=== PATIENT | female | born 1935 | race Caucasian/White ===

== ENCOUNTER 2016-10-19 18:00 | Inpatient (IN) ==
[2016-10-19] MEDS ORDERED: NS 1,000 ML IV ONE (18:44)
[2016-10-19] MEDS ORDERED: HUMULIN R IV ONE (19:25)
[2016-10-19 19:26] LABS: BLOOD TYPE ARTERIAL; SAMPLE BLOOD; pH(98.6) 7.14 (7.35-7.45)
[2016-10-19] MEDS ORDERED: ZOFRAN IV ONE (19:26)
[2016-10-19 19:27] LABS: PCO2(98.6) 15 mmHg (35-45); PO2(98.6) 76 mmHg (60-100)
[2016-10-19 19:28] LABS: MODALITY ROOM AIR
[2016-10-19 19:29] LABS: ALLEN TEST YES; DRAW SITE R RADIAL
[2016-10-19 20:00] LABS: ALBUMIN 3.8 g/dL (3.5-5.0); CALCIUM 9.7 mg/dL (8.8-10.2); POTASSIUM 5.9 mmol/L (3.5-5.1); TOTAL BILIRUBIN 0.51 mg/dL (0.20-1.00); TOTAL PROTEIN 6.7 g/dL (6.3-8.3)
[2016-10-19 20:10] LABS: BASO% 0.2 % (0.0-0.8); HEMATOCRIT 33.1 % (37.0-47.0); HEMOGLOBIN 10.3 g/dL (12.0-16.0); IMM GRAN# 0.12 X1000 (0.0-0.04); IMM GRAN% 0.6 % (0.0-0.5); LYMPH% 3.6 % (20.5-51.1); MANUAL DIFF NEEDED? NO; MCH 29.7 PG (27-31); MCHC 31.1 g/dL (33-37); MCV 95.4 FL (81-99); MONO# 1.24 X1000 (0.11-0.59); MONO% 6.4 % (1.7-9.3); MPV 11.7 FL (7.4-10.4); NEUT% 89.2 % (42.2-75.2); PLT 344 X1000 (130-400); RBC 3.47 XMIL (4.2-5.4)
[2016-10-19 20:20] LABS: URINE CULTURE NEEDED? NO; URINE MICRO REVIEW NEEDED? NO; URINE SOURCE CATH
[2016-10-19] MEDS: HUMULIN R 100 UNIT in NS 100 ML IV ONE ×2 (20:22→22:32)
[2016-10-19 20:37] LABS: BILIRUBIN URINE NEGATIVE (NEGATIVE); BLOOD URINE NEGATIVE (NEGATIVE); COLOR YELLOW; GLUCOSE URINE >1000 mg/dL (NEGATIVE); LEUKOCYTES URINE NEGATIVE (NEGATIVE); NITRITE URINE NEGATIVE (NEGATIVE); PROTEIN URINE NEGATIVE (NEGATIVE); SP GRAVITY URINE 1.022; TURBIDITY URINE CLEAR (CLEAR); UROBILINOGEN URINE NORMAL (NORMAL)
[2016-10-19 20:38] LABS: UR EPITHELIAL CELLS <10 /HPF (<10); URINE BACTERIA NEGATIVE /HPF; URINE RBC <10 /HPF (<10); URINE WBC <10 /HPF (<10)
[2016-10-19 20:46] LABS: UR AMPHETAMINES QUAL NONE DETECTED (NONE DETECT); UR BARBITUATES QUAL NONE DETECTED (NONE DETECT); UR BENZODIAZEPIN QUAL NONE DETECTED (NONE DETECT); UR CANNABINOIDS QUAL NONE DETECTED (NONE DETECT); UR COCAINE QUAL NONE DETECTED (NONE DETECT); UR METHADONE QUAL NONE DETECTED (NONE DETECT); UR OPIATES QUAL NONE DETECTED (NONE DETECT); UR OXYCODONE QUAL NONE DETECTED (NONE DETECT); UR PCP QUAL NONE DETECTED (NONE DETECT)
[2016-10-19] MEDS ORDERED: ATIVAN IV ONE (21:39)
[2016-10-19] MEDS ORDERED: D50W SYRINGE IV PRN (23:18)
[2016-10-19] MEDS ORDERED: POTASSIUM CHLORIDE 40 MEQ in NS 250 ML IV PRN (23:18)
[2016-10-19] MEDS ORDERED: HUMULIN R 100 UNIT in NS 99 ML IV SCH (23:18)
[2016-10-19] MEDS ORDERED: ZOFRAN PO PRN (23:18)
[2016-10-19] MEDS ORDERED: SODIUM BICARBONATE 8.4% 50 MEQ in D5W 250 ML IV PRN (23:18)
[2016-10-19] MEDS ORDERED: SODIUM PHOSPHATE 30 MMOL in D5W 250 ML IV PRN (23:18)
[2016-10-19] MEDS ORDERED: ZOFRAN IV PRN (23:18)
[2016-10-19] MEDS ORDERED: MAGNESIUM SULFATE 2 GM/S.W.I. 2 GM/50 ML IVPB IV PRN (23:18)
[2016-10-19] MEDS ORDERED: POTASSIUM CHLORIDE 20 MEQ in NS 100 ML IV PRN (23:18)
[2016-10-19] MEDS ORDERED: KLOR-CON PO PRN ×2 (23:18)
[2016-10-19] MEDS: NS 1,000 ML IV SCH (23:27)
[2016-10-19 23:51] LABS: CALCIUM 9.2 mg/dL (8.8-10.2); MAGNESIUM 2.2 mg/dL (1.5-2.7); POTASSIUM 4.6 mmol/L (3.5-5.1)
[2016-10-20 00:08] LABS: ALLEN TEST YES; BE -11.4 mmoll (-3.0-3.0); BLOOD TYPE ARTERIAL; DRAW SITE R RADIAL; METHB 1.4 % (0.0-1.5); O2(CT) 12.6 mL/dL (15.0-23.0); PCO2(98.6) 26 mmHg (35-45); PO2(98.6) 106 mmHg (60-100); SAMPLE BLOOD; SAO2 99.1 % (95.0-100.0); THB 9.1 g/dL (11.5-17.4); pH(98.6) 7.32 (7.35-7.45)
[2016-10-20 00:09] LABS: MODALITY ROOM AIR
[2016-10-20] MEDS: ROCEPHIN 1 GM/NS 1 GM/50 ML IVPB IV SCH (00:25)
[2016-10-20] MEDS: NS 1,000 ML IV SCH ×3 (00:42→03:10)
[2016-10-20] MEDS ORDERED: ATIVAN IV PRN (02:46)
[2016-10-20] MEDS ORDERED: NS 1,000 ML IV SCH (03:00)
[2016-10-20 04:26] LABS: CALCIUM 8.7 mg/dL (8.8-10.2); MAGNESIUM 1.9 mg/dL (1.5-2.7)
--- NOTE | 2016-10-20 04:37 | HISTORY AND PHYSICAL ---
ADDENDUM Critical care time was noted for about 45 minutes. cc: Maverick Ren MD
[2016-10-20 04:39] LABS: ALLEN TEST YES; BE -9.5 mmoll (-3.0-3.0); BLOOD TYPE ARTERIAL; DRAW SITE R RADIAL; METHB 1.7 % (0.0-1.5); O2(CT) 12.7 mL/dL (15.0-23.0); PCO2(98.6) 28 mmHg (35-45); PO2(98.6) 83 mmHg (60-100); SAMPLE BLOOD; SAO2 99.3 % (95.0-100.0); THB 9.3 g/dL (11.5-17.4); pH(98.6) 7.34 (7.35-7.45)
[2016-10-20 04:40] LABS: MODALITY ROOM AIR
[2016-10-20] MEDS ORDERED: HUMULIN R 100 UNIT in NS 100 ML IV SCH ×2 (04:45→16:00)
--- NOTE | 2016-10-20 05:01 | HISTORY AND PHYSICAL ---
PRIMARY CARE PHYSICIAN: Darrin Antonio MD CHIEF COMPLAINT: Mental status changes and hyperglycemia. HISTORY OF PRESENTING ILLNESS: A 80-year-old female with a history of diabetes mellitus, type 2 hypertension, coronary artery disease, was brought to the emergency department because the patient was mildly confused and not acting right as per family members. She was evaluated in the emergency room. She was noted to have markedly elevated blood glucose in the 800 range. Her symptoms are all consistent with a diabetic ketoacidosis and due to her presenting symptoms it was thought that she would need hospitalization for further management. The patient is severely altered and not much history could be obtained from her. Most of the history is obtained from her family members. PAST MEDICAL HISTORY: Include diabetes mellitus type 2, Zhao's palsy, hypertension, coronary artery disease/myocardial infarction. PAST SURGICAL HISTORY: Coronary bypass. ALLERGIES: No known drug allergies. CURRENT MEDICATIONS: As listed in the MAR. SOCIAL HISTORY: No history of smoking, alcohol, or illicit drug use. The patient was fairly independent prior to her hospitalization today. FAMILY HISTORY: No history of coronary disease. REVIEW OF SYSTEMS: Unable to obtain because patient is markedly obtunded. PHYSICAL EXAMINATION: GENERAL: The patient is resting comfortably. VITAL SIGNS: Temperature 97.2 degrees, pulse 100, respiration 20, blood pressure 111/33. HEENT: Atraumatic, normocephalic. NECK: No masses. CHEST: Rhonchi. CARDIOVASCULAR: Regular rate and rhythm. ABDOMEN: Soft. Positive bowel sounds. EXTREMITIES: No edema. NEUROLOGICAL: She is obtunded; however, moans to some verbal stimuli. GENITOURINARY: No bladder distention. SKIN: Warm. LABORATORIES AND STUDIES: Sodium 138, potassium 5.9, chloride 91. CO2 6, BUN is 36, creatinine 1.7. Glucose is 860. Blood gases shows a pH of 7.14. WBC is 19.32, hemoglobin 10.3, hematocrit 33.1, platelets 344,000. Urine shows greater than 1000 of glucose. ASSESSMENT: A 80-year-old female with a history of diabetes mellitus type 2, hypertension, coronary artery disease, who presented to the emergency department with 1-day history of mental status changes. She was found to have markedly elevated blood glucose consistent with diabetic ketoacidosis. She will be admitted to ICU for further evaluation management. 1. Altered mental status, probably secondary #2. 2. Diabetic ketoacidosis. 3. Leukocytosis. 4. Hypertension. 5. Coronary artery disease. PLAN: 1. We will admit patient to ICU. 2. We will continue with neuro checks. 3. We will put patient on diabetic ketoacidosis insulin protocols. 4. Check blood cultures and start patient on IV antibiotics. 5. We will monitor blood pressure and resume antihypertensive agents. 6. We will resume her home medications once she is more alert. 7. We will put patient on deep venous thrombosis prophylaxis with SCDs and heparin. 8. We will continue to follow and reassess. cc: Maverick Ren MD
[2016-10-20 05:02] LABS: HEMATOCRIT 25.8 % (37.0-47.0); HEMOGLOBIN 8.3 g/dL (12.0-16.0); IMM GRAN# 0.03 X1000 (0.0-0.04); IMM GRAN% 0.3 % (0.0-0.5); LYMPH# 0.55 X1000 (1.2-3.4); LYMPH% 4.6 % (20.5-51.1); MANUAL DIFF NEEDED? YES; MCH 28.8 PG (27-31); MCHC 32.2 g/dL (33-37); MCV 89.6 FL (81-99); MONO# 1.02 X1000 (0.11-0.59); MONO% 8.6 % (1.7-9.3); MPV 10.7 FL (7.4-10.4); NEUT% 86.5 % (42.2-75.2); PLT 238 X1000 (130-400); RBC 2.88 XMIL (4.2-5.4)
[2016-10-20] MEDS ORDERED: POTASSIUM CHLORIDE 40 MEQ in NS 250 ML IV PRN (05:25)
[2016-10-20] MEDS ORDERED: POTASSIUM CHLORIDE 20 MEQ in NS 100 ML IV PRN (05:25)
[2016-10-20 05:53] LABS: BANDS 6 % (0-1); LYMPHS 4 % (21-51); MONO 8 % (1-9)
[2016-10-20] MEDS: D5 NS 1,000 ML IV PRN ×3 (05:59→22:58)
--- NOTE | 2016-10-20 07:58 | Diag Imaging Result Document ---
PROCEDURE NAME: CHEST-PORTABLE - 10/19/2016 AP PORTABLE CHEST AT 1902 HOURS: FINDINGS: The inspiration is better than on 04/09/2015. There is still some reticulonodular interstitial opacity throughout both lungs. IMPRESSION: No evidence of acute pulmonary disease. Chronic interstitial fibrotic changes.
[2016-10-20 08:13] LABS: ALLEN TEST YES; BLOOD TYPE ARTERIAL; DRAW SITE R RADIAL; METHB 1.4 % (0.0-1.5); O2(CT) 12.6 mL/dL (15.0-23.0); PCO2(98.6) 29 mmHg (35-45); PO2(98.6) 109 mmHg (60-100); SAMPLE BLOOD; SAO2 99.7 % (95.0-100.0); THB 9.1 g/dL (11.5-17.4); pH(98.6) 7.38 (7.35-7.45)
[2016-10-20 08:14] LABS: MODALITY ROOM AIR
[2016-10-20 09:27] LABS: CALCIUM 8.4 mg/dL (8.8-10.2); MAGNESIUM 1.9 mg/dL (1.5-2.7); POTASSIUM 4.6 mmol/L (3.5-5.1)
[2016-10-20] MEDS: HUMULIN R SUBQ SCH ×4 (09:41→21:16)
[2016-10-20] MEDS ORDERED: POTASSIUM PHOSPHATE 30 MMOL in NS 250 ML IV ONE (10:30)
[2016-10-20 11:57] LABS: CALCIUM 8.3 mg/dL (8.8-10.2); MAGNESIUM 1.9 mg/dL (1.5-2.7); POTASSIUM 4.6 mmol/L (3.5-5.1)
[2016-10-20 15:43] LABS: CALCIUM 8.3 mg/dL (8.8-10.2); MAGNESIUM 1.8 mg/dL (1.5-2.7); POTASSIUM 5.1 mmol/L (3.5-5.1)
[2016-10-20] MEDS ORDERED: NORCO-5 PO PRN ×2 (17:37→18:26)
[2016-10-20] MEDS ORDERED: ULTRAM PO SCH (18:00)
--- NOTE | 2016-10-20 18:26 | PROGRESS NOTE ---
DATE: 10/20/2016 ICU FOLLOWUP: SUBJECTIVE: Interval history was reviewed. A 80-year-old white female, who was admitted last night with altered mental status, DKA, dehydration, anemia. Patient is very noncompliant. The patient was seen in my office 2 weeks ago for elevated blood pressure and also abnormal thyroid function tests. She is not taking Synthroid. She was severely hypothyroid. She also had a right Zhao's palsy which is recovering. She is noncompliant about diabetes. She is on insulin pump. REVIEW OF SYSTEMS: Patient is obtunded, agitated, sedated with Ativan. PAST MEDICAL HISTORY: Reviewed. PAST SURGICAL HISTORY: Reviewed. MEDICINES: Were reviewed. Updated the medication list. PHYSICAL EXAMINATION: Vital Signs: Afebrile. Respiration 14. Blood pressure was stable on 2 L of nasal cannula 96%. HEENT Exam: Right-sided facial paresis noted. Neck: Supple. Chest: Clear to auscultation. Heart: Sounds are regular. Abdomen: Belly is soft, dry. No signs of peritonitis. Extremities: No peripheral edema, cyanosis, clubbing. Neuro exam: Hard to assess because obtunded. Able to move all the extremities as per the nurses. LABORATORIES: CBC: White cell count 11, hematocrit 25.8, platelets 238,000. ABG; pH is 7.38, pCO2 of 29, PO2 109, bicarb 19. SMA 7; sodium 148, potassium 5.1, chloride 120, CO2 14, anion gap is coming down. BUN 27, creatinine 1.1, glucose 199, calcium 8.3, phosphorus 2.9. Magnesium 1.8. TSH 0.24. Urinalysis is negative. Urine toxicology screen was negative. IMAGING: Chest x-ray: No evidence of acute disease. Chronic interstitial fibrotic changes. ASSESSMENT AND PLAN: 1. Altered mental status due to diabetic ketoacidosis. Patient has been on insulin drip. Blood sugars are running around 200. Discontinue insulin drip. Follow up on sliding scale with insulin coverage. 2. Dehydration. Continue on IV fluids. 3. Hypothyroidism. On Synthroid 150 mcg once a day. 4. Hypertension. On Cozaar 50 once daily, metoprolol 25 daily. 5. Restless legs syndrome. On Mirapex. 6. Chronic pain. On [place] and Ultram as needed. 7. Coronary artery disease. Continue on Plavix and beta blockers. 8. Hypophosphatemia. We will do a potassium phosphate. We will discuss with the family. We will continue to monitor in the ICU. Condition is guarded. 9. Right Zhao's palsy. Stable. LEVEL OF DOCUMENTATION: 35 minutes. cc: Saqib Antonio MD
[2016-10-20] MEDS: ULTRAM PO SCH (18:33)
[2016-10-20 20:14] LABS: CALCIUM 8.3 mg/dL (8.8-10.2); MAGNESIUM 1.8 mg/dL (1.5-2.7); POTASSIUM 4.8 mmol/L (3.5-5.1)
[2016-10-20] MEDS ORDERED: SYNTHROID PO SCH (21:00)
[2016-10-20] MEDS ORDERED: COZAAR PO SCH (21:00)
[2016-10-20] MEDS ORDERED: DESYREL PO SCH (21:00)
[2016-10-20] MEDS: DESYREL PO SCH (21:10)
[2016-10-20] MEDS: COZAAR PO SCH (21:10)
[2016-10-20] MEDS: SYNTHROID PO SCH (21:10)
[2016-10-20 23:44] LABS: CALCIUM 8.1 mg/dL (8.8-10.2); MAGNESIUM 1.8 mg/dL (1.5-2.7); POTASSIUM 4.2 mmol/L (3.5-5.1)
[2016-10-21] MEDS: ROCEPHIN 1 GM/NS 1 GM/50 ML IVPB IV SCH (01:45)
[2016-10-21] MEDS: ULTRAM PO SCH ×3 (02:41→19:01)
[2016-10-21 05:53] LABS: CALCIUM 7.9 mg/dL (8.8-10.2); MAGNESIUM 1.8 mg/dL (1.5-2.7)
[2016-10-21] MEDS: HUMULIN R SUBQ SCH ×4 (06:39→21:39)
[2016-10-21] MEDS: D5 NS 1,000 ML IV PRN (07:37)
[2016-10-21] MEDS: MIRAPEX PO SCH (08:34)
[2016-10-21] MEDS: PLAVIX PO SCH (08:35)
[2016-10-21] MEDS: TOPROL XL PO SCH (08:35)
[2016-10-21] MEDS: PRAVACHOL PO SCH (08:35)
[2016-10-21] MEDS ORDERED: MIRAPEX PO SCH (09:00)
[2016-10-21] MEDS ORDERED: PRAVACHOL PO SCH (09:00)
[2016-10-21] MEDS ORDERED: TOPROL XL PO SCH (09:00)
[2016-10-21] MEDS ORDERED: PLAVIX PO SCH (09:00)
[2016-10-21] MEDS ORDERED: NEUTRA-PHOS PO ONE (11:17)
[2016-10-21] MEDS: 1/2 NS 1,000 ML IV SCH (12:38)
--- NOTE | 2016-10-21 12:53 | PROGRESS NOTE ---
DATE: 10/21/2016 SUBJECTIVE: The patient is more alert following the verbal commands. Mental status is improving as well as DKA with anion gap. REVIEW OF SYSTEMS: HEENT: Denies any headache, vision problems. No sore throat. Neck: No goiters, no lymphadenopathy. Cardiopulmonary: No chest pain, shortness of breath, PND, orthopnea. GI: No nausea, vomiting, abdominal pain. : Had a Rueda placed. Extremities: No swelling of feet. Neurological: Right-sided facial weakness due to Zhao palsy, no improvement. MEDICATIONS: Reviewed. Basically off on insulin pump. PHYSICAL EXAMINATION: Vital signs: Hemodynamics are stable. Afebrile. HEENT: Right-sided facial palsy involving the upper part of the face and the lower part of the face. Lagophthalmos noted. Tongue is in midline. Neck: Supple, no lymphadenopathy, no goiter. Chest: Bilateral air entry. Heart: Heart sounds are regular. Abdomen: Belly is soft, nontender, good bowel sounds. Rueda is placed. Extremities: No signs of gangrene. Decreased pulses as well as sensory exam. INVESTIGATIONS: SMAS: Sodium 149, potassium 5.0, chloride 131, BUN 22, creatinine 1.0, glucose 300. Magnesium 1.8, phosphorus 2.6, calcium 7.9. ASSESSMENT AND PLAN: 1. Diabetic ketoacidosis is improving, resolving anion gap, changing the IV fluids to half normal saline 80 mL/h. 2. Electrolytes: Potassium is normal. Phosphorus is low. Replace with Neutra-Phos. 3. Diabetes. Instructed family about insulin pump, continue on basal insulin, and follow up on sliding scale. 4. Anemia. Check the stool and CBC in the morning. 5. Coronary artery disease. Continue on Plavix. 6. Hypothyroidism, on Synthroid 150 mcg once a day. 7. Hypertension on Cozaar. 8. Hyperlipidemia on pravastatin. 9. Zhao palsy on the right side, no improvement. PLAN OF CARE TODAY: 1. Discontinue Rueda. 2. Will start on insulin pump. 3. Replace with Neutra-Phos for hypophosphatemia. Discussed with patient's daughter at bedside. LEVEL OF DOCUMENTATION: 35 minutes. cc: Saqib Antonio MD
[2016-10-21 14:37] LABS: CALCIUM 8.1 mg/dL (8.8-10.2); MAGNESIUM 1.9 mg/dL (1.5-2.7); POTASSIUM 4.6 mmol/L (3.5-5.1)
[2016-10-21] MEDS ORDERED: PATIENT'S OWN MED SUBQ SCH (15:00)
[2016-10-21] MEDS: PATIENT'S OWN MED SUBQ SCH (19:00)
[2016-10-21] MEDS: DESYREL PO SCH (21:36)
[2016-10-21] MEDS: SYNTHROID PO SCH (21:36)
[2016-10-21] MEDS: COZAAR PO SCH (21:36)
[2016-10-21 22:16] LABS: AGAP 10; BUN 19 mg/dL (8-22); CALCIUM 8.2 mg/dL (8.8-10.2); CHLORIDE 116 mmol/L (98-107); COSMO 292; MAGNESIUM 1.9 mg/dL (1.5-2.7); POTASSIUM 4.3 mmol/L (3.5-5.1); SODIUM 146 mmol/L (136-145); TCO2 20 mmol/L (25-35)
[2016-10-22] MEDS: 1/2 NS 1,000 ML IV SCH ×2 (02:10→15:27)
[2016-10-22] MEDS: ROCEPHIN 1 GM/NS 1 GM/50 ML IVPB IV SCH (02:13)
[2016-10-22] MEDS: ULTRAM PO SCH ×4 (02:54→18:45)
[2016-10-22 05:20] LABS: MANUAL DIFF NEEDED? NO
[2016-10-22 05:25] LABS: BASO% 0.3 % (0.0-0.8); EOS# 0.08 X1000 (0.0-0.7); EOS% 1.3 % (0.0-10.0); HEMATOCRIT 26.2 % (37.0-47.0); HEMOGLOBIN 8.3 g/dL (12.0-16.0); LYMPH# 1.19 X1000 (1.2-3.4); LYMPH% 19.9 % (20.5-51.1); MCHC 31.7 g/dL (33-37); MCV 91.6 FL (81-99); MONO% 8.4 % (1.7-9.3); MPV 10.1 FL (7.4-10.4); NEUT% 70.1 % (42.2-75.2); PLT 179 X1000 (130-400); RBC 2.86 XMIL (4.2-5.4)
[2016-10-22 05:54] LABS: AGAP 11; BUN 19 mg/dL (8-22); CALCIUM 8.2 mg/dL (8.8-10.2); CHLORIDE 116 mmol/L (98-107); COSMO 297; MAGNESIUM 1.8 mg/dL (1.5-2.7); POTASSIUM 4.3 mmol/L (3.5-5.1); SODIUM 146 mmol/L (136-145); TCO2 19 mmol/L (25-35)
[2016-10-22] MEDS: HUMULIN R SUBQ SCH ×4 (06:50→20:38)
[2016-10-22] MEDS: TOPROL XL PO SCH (08:46)
[2016-10-22] MEDS: PLAVIX PO SCH (08:46)
[2016-10-22] MEDS: MIRAPEX PO SCH (08:46)
[2016-10-22] MEDS: PRAVACHOL PO SCH (08:46)
[2016-10-22] MEDS: PATIENT'S OWN MED SUBQ SCH (08:58)
[2016-10-22] MEDS ORDERED: VENOFER IV ONE (11:53)
[2016-10-22] MEDS ORDERED: VENOFER 300 MG in NS 250 ML IV ONE (13:00)
[2016-10-22] MEDS: NEUTRA-PHOS PO SCH ×3 (13:06→20:33)
--- NOTE | 2016-10-22 13:35 | PROGRESS NOTE ---
DATE: 10/22/2016 SUBJECTIVE: Patient is more awake, not eating well. Patient has been on half normal saline 80 mL an hour. Rueda was discontinued. Patient has not been voiding very well. Last bladder scan was 170 mL last night. This morning 370 mL. IV access is poor. Patient is not agitated. REVIEW OF SYSTEMS: None reported. PHYSICAL EXAMINATION: Vital Signs: Afebrile, pulse is 58, blood pressure is 136/71, pulse oximetry 94% on room air. Weight 129 pounds. HEENT Exam: Right side Zhao's palsy noted. Neck: Supple. No lymphadenopathy. Chest: Clear to auscultation. Heart: Sounds are regular. Belly: Soft, nontender. Good bowel sounds and no masses palpable. No signs of gangrene. Extremities: Decreased sensory exam in both feet. INVESTIGATIONS: CBC. White cell count 5.9, hematocrit 26, platelet count 179,000. SMA 7, sodium 146, potassium 4.3, chloride 116, BUN 19, creatinine 0.8, anion gap is 11. Glucose 175, magnesium, calcium normal, phosphate is slightly low. ASSESSMENT AND PLAN: 1. Diabetic ketoacidosis is resolving. Continue on IV fluids. Once she starts eating will discontinue fluids. 2. Hypophosphatemia. Neutra-Phos replacement. 3. Type 2 diabetes on insulin pump. Doing very well. 4. Bladder retention off Rueda. Continue straight catheter in and out. 5. Anemia. Hematocrit 26. Follow up on stool occult blood. In light of ischemic heart disease, peripheral vascular disease I would like to keep the hematocrit close to 30. Will give 1 bag of Venofer 300 mg. DISPOSITION: If she is stable next 24 hours will be transferred to the floor. In the meantime increase her activity, keep her out of the bed with assistance. LEVEL OF DOCUMENTATION: 25 minutes. cc: Saqib Antonio MD
[2016-10-22 14:27] LABS: AGAP 13; BUN 18 mg/dL (8-22); CALCIUM 8.1 mg/dL (8.8-10.2); CHLORIDE 108 mmol/L (98-107); COSMO 286; POTASSIUM 4.6 mmol/L (3.5-5.1); SODIUM 138 mmol/L (136-145); TCO2 17 mmol/L (25-35)
[2016-10-22] MEDS: DESYREL PO SCH (20:33)
[2016-10-22] MEDS: COZAAR PO SCH (20:33)
[2016-10-22] MEDS: SYNTHROID PO SCH (20:47)
[2016-10-22 22:14] LABS: AGAP 13; BUN 16 mg/dL (8-22); CALCIUM 8.4 mg/dL (8.8-10.2); CHLORIDE 111 mmol/L (98-107); COSMO 285; POTASSIUM 4.1 mmol/L (3.5-5.1); SODIUM 141 mmol/L (136-145); TCO2 17 mmol/L (25-35)
[2016-10-23] MEDS: ULTRAM PO SCH ×3 (01:57→19:43)
[2016-10-23] MEDS: ROCEPHIN 1 GM/NS 1 GM/50 ML IVPB IV SCH (01:58)
[2016-10-23 05:14] LABS: MANUAL DIFF NEEDED? NO
[2016-10-23 05:17] LABS: BASO% 0.4 % (0.0-0.8); EOS# 0.14 X1000 (0.0-0.7); EOS% 2.7 % (0.0-10.0); HEMOGLOBIN 8.8 g/dL (12.0-16.0); LYMPH% 19.4 % (20.5-51.1); MCH 29.9 PG (27-31); MCHC 32.6 g/dL (33-37); MCV 91.8 FL (81-99); MONO# 0.37 X1000 (0.11-0.59); MONO% 7.2 % (1.7-9.3); MPV 10.8 FL (7.4-10.4); NEUT% 70.3 % (42.2-75.2); PLT 191 X1000 (130-400); RBC 2.94 XMIL (4.2-5.4)
[2016-10-23 05:33] LABS: AGAP 11; BUN 15 mg/dL (8-22); CALCIUM 8.4 mg/dL (8.8-10.2); CHLORIDE 113 mmol/L (98-107); COSMO 284; POTASSIUM 4.4 mmol/L (3.5-5.1); SODIUM 140 mmol/L (136-145); TCO2 16 mmol/L (25-35)
[2016-10-23] MEDS: HUMULIN R SUBQ SCH ×4 (06:14→20:45)
[2016-10-23] MEDS: 1/2 NS 1,000 ML IV SCH (08:14)
[2016-10-23] MEDS: PLAVIX PO SCH (08:15)
[2016-10-23] MEDS: MIRAPEX PO SCH (08:15)
[2016-10-23] MEDS: PATIENT'S OWN MED SUBQ SCH (08:15)
[2016-10-23] MEDS: TOPROL XL PO SCH (08:15)
[2016-10-23] MEDS: PRAVACHOL PO SCH (08:15)
[2016-10-23] MEDS: NEUTRA-PHOS PO SCH ×2 (08:15→12:31)
--- NOTE | 2016-10-23 09:20 | PROGRESS NOTE ---
DATE: 10/23/2016 SUBJECTIVE: The patient wants to go home. IV access was problematic last night. Venofer has not been transfused. Rueda catheter was out. Eating well. Patient more conscious. REVIEW OF SYSTEMS: None reported. PHYSICAL EXAMINATION: Vital Signs: Vitals are stable, afebrile, blood, pressure is 100/40. Room air 90% pulse oximetry. HEENT: Right side Zhao's palsy noted. Neck: Supple. Chest: Clear to auscultation. Heart: Heart sounds are regular. Abdomen: Belly is soft, nontender. Good bowel sounds. Extremities: No peripheral edema, cyanosis, clubbing. INVESTIGATIONS: CBC: White cell count 5.1, hematocrit 27, platelets 191,000. SMA 7: Sodium 140, potassium 4.4, chloride 113, BUN is 15, creatinine 0.8, glucose 164. AG is normal. ASSESSMENT AND PLAN: 1. Altered mental status, resolving. 2. Diabetic ketoacidosis, improved. 3. Diabetes, on insulin pump with boluses and basal insulin. 4. Right Zhao's palsy, stable. 5. Anemia. Continue on Icar-C Plus 1 tablet by mouth twice a day. DISPOSITION: We will transfer out of the ICU. We will discuss with the family the disposition. cc: Saqib Antonio MD MTDD
[2016-10-23] MEDS: ICAR-C PO SCH (17:27)
[2016-10-23] MEDS: DESYREL PO SCH (20:46)
[2016-10-23] MEDS: COZAAR PO SCH (20:46)
[2016-10-23] MEDS: SYNTHROID PO SCH (20:46)
[2016-10-24] MEDS: ULTRAM PO SCH ×2 (06:57→13:37)
[2016-10-24 07:39] VITALS: BP 145/58
[2016-10-24] MEDS: HUMULIN R SUBQ SCH ×2 (10:02→10:08)
[2016-10-24] MEDS: PLAVIX PO SCH (10:11)
[2016-10-24] MEDS: MIRAPEX PO SCH (10:11)
[2016-10-24] MEDS: PRAVACHOL PO SCH (10:11)
[2016-10-24] MEDS: ICAR-C PO SCH (10:12)
--- NOTE | 2016-10-27 09:56 | DISCHARGE SUMMARY ---
ADMISSION DATE: 10/19/2016 DISCHARGE DATE: 10/24/2016 DISCHARGING DIAGNOSIS: Altered mental status due to diabetic ketoacidosis. SECONDARY DIAGNOSES: 1. Right-sided Zhao's palsy, stable. 2. Noncompliance. 3. Coronary artery disease. 4. Peripheral vascular disease with bilateral carotid stenosis, 80% on the right and 60% on the left. 5. Bilateral superficial femoral artery stenosis. 6. Diabetic gastroparesis. 7. Hypertension. 8. B 12 deficiency. 9. Status post right ankle fracture. BRIEF HISTORY: Please see the H and P that was done by hospitalist. In brief, she is a 80-year- old white female with complicated diabetes, coronary artery disease, peripheral vascular disease, who recently had a Zhao's palsy. Stopped taking Synthroid. Severely hypothyroid. She presented to the emergency room with altered mental status. Blood sugar 700 with diabetic ketoacidosis. HOSPITAL COURSE: She was admitted in ICU in critical condition. Patient was started on DKA protocol. Started on IV insulin, IV fluids, and follow up electrolytes were managed. The patient got better and resolution of anion gap acidosis. She was also slightly anemic, and she was given half of the Venofer. Patient is not offering any complaints. Patient has been on insulin pump, which was started back with basal insulin bolus insulin. She has been tolerating the diet very well. She has moved out of the ICU in a stable condition. LABORATORIES: At the time of discharge, CBC revealed white cell count 5.1, hematocrit 27, platelets 191. SMA 7: Sodium 140, potassium 4.4, chloride 113, BUN is 15, creatinine 0.8, glucose 164. Magnesium and phosphorus were normal. Urine tox screen was negative. X-RAYS: Chest x-ray was negative with chronic interstitial changes. DISCHARGE INSTRUCTIONS: 1. Synthroid 150 mcg daily, Cozaar 50 daily, trazodone 100 at bedtime, pravastatin 40 daily, Mirapex 0.25 daily, tramadol 50 q. 8 hours, Plavix 75 daily, metoprolol 25 mg daily, MiraLAX as needed, Icar C Plus 1 tablet daily. 2. Follow up in my office for maintenance care for diabetes, hypertension, hyperlipidemia, and Zhao's palsy on the right side. cc: Saqib Antonio MD
--- NOTE | 2016-11-07 00:43 | PROVIDER DOCUMENTATION ---
This chart was entered by Beth Odonnell Scribe, acting as scribe for Raza Oseguera MD. HPI-General Adult - General Chief Complaint: Altered Mental Status Stated Complaint: AMS Time Seen by Provider: 10/19/16 18:35 Source: family Allergies/Adverse Reactions: Patient Allergies Allergy/AdvReac Type Severity Reaction Status Date / Time No Known Allergies Allergy Verified 10/19/16 18:58 Home Medications: Home Medication List Medication Instructions Recorded Confirmed Last Taken Type Levothyroxine [Synthroid] 150 microgm PO HS #0 tablet 02/22/15 10/20/16 Unknown Rx Losartan [Cozaar] 50 mg PO HS #0 tablet 02/22/15 10/20/16 07/26/16 13:00 Rx Clopidogrel Bisulfate [Plavix] 75 mg PO DAILY 10/20/16 10/20/16 Unknown History Metoprolol Succinate E.r. [Toprol 25 mg PO DAILY 10/20/16 10/20/16 Unknown History Xl] PRAVAstatin [Pravachol] 40 mg PO DAILY 10/20/16 10/20/16 Unknown History Pramipexole [Mirapex] 0.25 mg PO DAILY 10/20/16 10/20/16 Unknown History Tramadol HCl [Ultram] 50 mg PO Q8H 10/20/16 10/20/16 Unknown History Trazodone [Desyrel] 100 mg PO QHS 10/20/16 10/20/16 Unknown History Polyethylene Glycol 3350 [Miralax] 17 gm PO DAILY #30 powd.pack 10/24/16 Unknown Rx - History of Present Illness -Gen Adult Nature of Presenting Problems: 80 Y/O F presents to ED with AMS. Pt son-in-law states last week pt was N , and had a high blood sugar. Pt family states that the insulin pump was removed. Pt has [place] Palsy on the left side of her face for the past 3-4 months. P family states that she's has SOB and has been incoherent starting this morning. Pt has type 1 diabetes. Family states that last occurrence of [id number] symptoms Pt had DKA. Location of Pain/Injury: reports: abdomen Pain Radiation: reports: no radiation Quality of Pain: reports: aching Severity: reports: moderate, severe Onset/Duration: reports: this morning Timing: reports: still present Associated Symptoms: reports: nausea, shortness of breath. denies: constipation Similar Symptoms Previously?: Yes - Diabetes Related Context Context: reports: high blood sugar, change in mental status, prior DKA hospitalization Review of Systems - Adult - REVIEW OF SYSTEMS - ADULT Constitutional: denies: chills, fever Eyes: reports: no symptoms reported Ears, Nose, Mouth & Throat: reports: no symptoms reported Cardiovascular: reports: no symptoms reported Respiratory: reports: shortness of breath. denies: cough Gastrointestinal: reports: abdominal pain, nausea. denies: diarrhea Genitourinary: reports: no symptoms reported Musculoskeletal: reports: no symptoms reported Integumentary: reports: no symptoms reported Neurological: reports: no symptoms reported Psychiatric: reports: no symptoms reported Endocrine: denies: excessive sweating Hematologic/Lymphatic: reports: no symptoms reported Allergic/Immunologic: reports: no symptoms reported All Other Systems: Reviewed and Negative Past History - Adult - PAST MEDICAL HISTORY-ADULT Review of Records: reports: Old Records Reviewed, Nursing Assessment Review, Medications Reviewed, Social history reviewed & non-contributory. Major Childhood Illnesses: reports: denies history Cardiovascular: reports: CAD, HTN, hyperlipidemia, HI Respiratory: reports: denies history Gastrointestinal: reports: denies history Obstetrical/Gynecological: reports: denies history Genitourinary: reports: denies history Musculoskeletal: reports: denies history Neurological: reports: Seizures/Epilepsy Endocrine/Immune: reports: Diabetes, thyroid disorder Other Conditions: reports: denies history - PRIOR SURGERIES/PROCEDURES Surgical/Procedure History: reports: CABG - PRIOR HOSPITALIZATIONS Prior Hospitalizations: reports: for similar symptoms - IMMUNIZATION STATUS Childhood Immunizations: See Nurse Assessment Flu Vaccine: See Nurse Assessment - FAMILY HISTORY Family History: reviewed, not pertinent - SOCIAL HISTORY Smoking: non-smoker Substance Use: none/never Alcohol Use Frequency: never Living Situation: family Physical Exam-General - CONSTITUTIONAL General Appearance: alert, mild distress, lethargic, slow to respond - EYES Eyes: PERRL/EOMI, pink conjunctivae, other ([place] palsy on left sided of face) - HEAD, EARS, NOSE, MOUTH & THROAT HENMT: negative: moist mucous membranes (dry) - NECK Neck: non-tender, full range of motion - RESPIRATORY Respiratory: chest non-tender, lungs clear, normal breath sounds - CARDIOVASCULAR Cardiovascular: normal peripheral pulses, regular rate, rhythm - GASTROINTESTINAL (ABDOMEN) Abdominal Exam: soft, tenderness - LYMPHATIC Lymphatic: no adenopathy - MUSCULOSKELETAL Back Exam: normal inspection, no CVA tenderness, no vertebral tenderness Extremity: normal range of motion, non-tender - SKIN Integumentary: normal turgor, warm/dry Progress - PLAN OF CARE/RESULTS Progress/Plan/Lab Results: Orders Category Date Time Status Finger Stick Blood Sugar (ED) DIRECTED Care 10/19/16 18:42 Active CHEST-PORTABLE [RAD] Stat Exams 10/19/16 18:43 Ordered HEAD W/O CONTRAST [CT] Stat Exams 10/19/16 18:42 Ordered ABG [RESP] Routine Lab 10/19/16 18:43 Ordered ALCOHOL BLOOD Stat Lab 10/19/16 18:42 Ordered AMMONIA [CHEM] Stat Lab 10/19/16 18:43 Uncollected BLOOD CULTURE [BLDCUL] Stat Lab 10/19/16 18:42 Uncollected CBC WITH ELECTRONIC DIFF [HEME] Stat Lab 10/19/16 18:43 Uncollected CMP [COMPREHENSIVE METABOLIC PANEL] [CHEM] Stat Lab 10/19/16 18:43 Uncollected LACTATE, PLASMA [CHEM] Stat Lab 10/19/16 18:42 Uncollected LIPASE [CHEM] Stat Lab 10/19/16 18:44 Uncollected UA NIMS W/REFLEX CULT [URINALYSIS] Stat Lab 10/19/16 18:43 Uncollected UDS [URINE DRUG SCREEN] Stat Lab 10/19/16 18:44 Uncollected 0.9% Sodium Chloride Inj [Ns] 1,000 ml Med 10/19/16 18:44 Active IV 999 mls/hr Result Diagrams: 10/23/16 04:00 10/23/16 04:00 - CONSULTS/PCP/HOSPITALIST Notification #1 *Consult/PCP/Hospitalist*: Dr. Ren Time Discussed: 21:04 Reason/Comments: Admit Consult Disposition: Admit (Admit accepted) Departure - Departure Time of Disposition Decision: 20:54 DIAGNOSIS: DKA (diabetic ketoacidosis) Disposition: ADMITTED INPATIENT 09 Certified Medical Emergency: Emergent Condition: Fair - Critical Care Note This patient required my direct & personal management of CC.: No This chart was documented by the indicated scribe, (Belle,Beth, Scribe) and accurately reflects the services I performed and decisions made by me, Raza Oseguera MD, as attested by the provider's signature.
== END 2016-10-24 14:13 | disposition home or self-care (01) ==
LOC: ED 18:00 → ICU 21:51 → SUPCPDRO 21:51 → SUATTDRO 21:51 → 3N 10-23 13:03
PROVIDERS: ADMIT Internal Medicine; ATTEND Internal Medicine